=== PATIENT | female | born 1975 ===

== ENCOUNTER 2021-06-11 14:05 | Emergency (ER) | payer MEDICARE, MEDICAID ==
[~2021-06-11] VITALS: Ht 170.2 cm; Wt 98.4 kg
[2021-06-11 15:13] VITALS: BP 138/93
[2021-06-11] MEDS ORDERED: DexAMETHasone SOD PHOS 10MG/1ML VIAL INJ PO ONE (16:45)
== END 2021-06-11 19:10 | disposition left against medical advice (07) ==
LOC: ER 14:05
DX: J02.9 Acute pharyngitis, unspecified (principal)